=== PATIENT | male | born 1975 | race Caucasian/White ===

== ENCOUNTER → 2016-05-06 | Outpatient (CLI) | payer OTHER ==
[~2016-05-06] VITALS: Ht 170.2 cm; Wt 79.4 kg
== END | disposition home or self-care (01) ==
LOC: AMB 09:54
PROC: 0DJD8ZZ Inspection of Lower Intestinal Tract, Via Natural or Artificial Opening Endoscopic (ICD-10-PCS; principal; 2016-05-06)
DX: Z12.11 Encounter for screening for malignant neoplasm of colon (principal); K64.9 Unspecified hemorrhoids; Z83.71 Family history of colonic polyps; F17.200 Nicotine dependence, unspecified, uncomplicated
CPT/HCPCS: B4087; J2250; J3010